=== PATIENT | male | born 1955 | race Caucasian/White ===

== ENCOUNTER 2020-08-30 06:17 | Inpatient (IN) ==
[~2020-08-30 06:17] MED LIST: Buffered Lidocaine 1% SYRIN 1 ml INTRADERM ONE; Dexamethasone IV 4 MG/ML VIAL 1 ml VIAL IV SLOW PU ONE; Lactated Ringers 1000 ml BAG 1,000 ML IV SCH
[2020-08-30] MEDS ORDERED: Midazolam 2 mg/2 ml VIAL 1 mg/ml 2 ml VIAL (2 mg) ONE ×3 (06:45→08:14)
[2020-08-30] MEDS ORDERED: Rocuronium 50 mg VIAL 10 mg/ml 5 ml VIAL (50 mg) ONE (06:45)
[2020-08-30] MEDS ORDERED: fentaNYL 100 mcg/2 ml 50 MCG/ML VIAL ONE (06:45)
[2020-08-30] MEDS ORDERED: Bupivacaine 0.5% SDV PF 30ML VIAL ONE (06:46)
[2020-08-30] MEDS ORDERED: Propofol 10 MG/ML 20 ML BTL ONE (06:46)
[2020-08-30] MEDS ORDERED: ROPIVACAINE 5 MG/ML 30 ML BTL (0.5%) ONE ×2 (06:48→09:28)
[2020-08-30] MEDS ORDERED: Lidocaine 2% PF 5 ML VIAL ONE (06:48)
[2020-08-30] MEDS ORDERED: ceFAZolin 2 GM PREMIX 2 GM/50 ML BAG ONE (07:02)
[2020-08-30] MEDS ORDERED: Dexamethasone IV 4 MG/ML VIAL 1 ml VIAL ONE (07:02)
[2020-08-30] MEDS ORDERED: Ropivacaine 0.2% 2 MG/ML VIAL ONE (07:45)
[2020-08-30] MEDS ORDERED: Naloxone 0.4 mg VIAL 0.4 mg/ml 1 ml VIAL IV PRN (08:25)
[2020-08-30] MEDS ORDERED: Ondansetron 4 mg VIAL 2 MG/ML 2 ml VIAL IV PRN ×2 (08:25→10:34)
[2020-08-30] MEDS ORDERED: fentaNYL 100 mcg/2 ml 50 MCG/ML VIAL IV PRN (08:25)
[2020-08-30] MEDS ORDERED: HYDROmorphone 1 MG/1 ML SYRINGE IV PRN (08:25)
[2020-08-30] MEDS ORDERED: Ondansetron ODT 4 mg TAB 4 MG TAB PO PRN (10:34)
[2020-08-30] MEDS ORDERED: Morphine 2 MG/ML SYRINGE IV PRN (10:34)
[2020-08-30] MEDS ORDERED: oxyCODONE/Acetamin 5/325 mg TAB PO PRN (10:34)
[2020-08-30] MEDS ORDERED: diPHENhydraMINE IV 50 MG/ML 1 ml VIAL (BENADRYL) IV PRN (10:34)
[2020-08-30] MEDS ORDERED: Lactulose 30 ml UDC PO PRN (10:34)
[2020-08-30] MEDS ORDERED: Magnesium Hydroxide LIQ 30 ML UDC PO PRN (10:34)
[2020-08-30] MEDS ORDERED: diPHENhydraMINE 25 mg TAB PO PRN (10:34)
[2020-08-30] MEDS: Lactated Ringers 1000 ml BAG 1,000 ML IV SCH ×2 (12:03→21:51)
[2020-08-30] MEDS: ceFAZolin 1 GM ADVAN 1 GM in NS 0.9% 50 ML 50 ML IVPB SCH (15:13)
[2020-08-30] MEDS: Magnesium Hydroxide LIQ 30 ML UDC PO SCH (21:34)
[2020-08-30] MEDS: DULoxetine DR 30 mg CAP PO SCH (21:34)
[2020-08-31] MEDS ORDERED: Polyethylene Glycol 3350 17 GM PACKET PO PRN (00:01)
[2020-08-31] MEDS: ceFAZolin 1 GM ADVAN 1 GM in NS 0.9% 50 ML 50 ML IVPB SCH ×2 (00:36→09:49)
[2020-08-31] MEDS: oxyCODONE/Acetamin 5/325 mg TAB PO PRN ×2 (00:43→11:47)
[2020-08-31 07:12] LABS: Hematocrit 41 % (42-52); Hemoglobin 13.9 g/dL (14.0-18.0); Mean Platelet Volume 9.1 fL (7.4-10.4); Platelet Count 207 10^3/uL (150-450)
[2020-08-31 07:28] LABS: BUN/Creatinine Ratio 18.2 (8-20); Calcium 8.5 mg/dL (8.6-10.3); EGFR African American 104.8 (>60); EGFR Non-African American 86.6 (>60); Potassium 4.3 mmol/L (3.5-5.0)
[2020-08-31] MEDS: Lactated Ringers 1000 ml BAG 1,000 ML IV SCH (08:13)
[2020-08-31] MEDS: DULoxetine DR 30 mg CAP PO SCH (09:49)
[2020-08-31] MEDS: Magnesium Hydroxide LIQ 30 ML UDC PO SCH (11:32)
[2020-08-31 11:47] VITALS: BP 151/77
== END 2020-08-31 12:42 | disposition home or self-care (01) | DRG 470 ==
LOC: AA 06:17 → SSU 11:46
PROVIDERS: ADMIT Orthopaedic Surgery Adult Reconstructive Orthopaedic Surgery; ATTEND Orthopaedic Surgery Adult Reconstructive Orthopaedic Surgery